=== PATIENT | male | born 1970 | race Caucasian/White ===

== ENCOUNTER 2018-10-20 22:26 | Emergency (ER) | payer SELFPAY ==
--- NOTE | 2018-10-20 22:29 | NUR ---
Patient BIB [facility] for c/o back pain. Patient upon arrival refusing to be traiged or to be seen by [facility] stating "I just want to go to [place]." Patient left without being triaged or seen by [facility]
== END 2018-10-20 22:31 | disposition left against medical advice (07) ==
LOC: ER 22:28
DX: Z53.21 Procedure and treatment not carried out due to patient leaving prior to being seen by health care provider (principal)

== ENCOUNTER 2019-10-06 03:59 | Emergency (ER) | payer SELFPAY ==
[~2019-10-06] VITALS: Ht 188 cm; Wt 81.6 kg
[2019-10-06] MEDS ORDERED: ONDANSETRON 4 MG/2 ML VIAL IV ONE (04:15)
[2019-10-06] MEDS ORDERED: ASPIRIN 81 MG TAB.CHEW PO ONE (04:15)
[2019-10-06] MEDS ORDERED: NITROGLYCERIN OINT 1 GM PACKET TP ONE ×2 (04:15→04:24)
[2019-10-06] MEDS ORDERED: HYDROCODONE/APAP 10-325 MG TABLET PO ONE (04:15)
--- NOTE | 2019-10-06 04:16 | NUR ---
PATIENT WAS MSE BY DR TAO IN ROOM 03A.
[2019-10-06] MEDS ORDERED: ASPIRIN 81 MG TAB.CHEW ONE (04:24)
[2019-10-06] MEDS ORDERED: HYDROCODONE/APAP 10-325 MG TABLET ONE (04:25)
[2019-10-06] MEDS ORDERED: NITROGLYCERIN 0.4 MG/TAB BOTTLE SL ONE ×2 (04:25→04:30)
[2019-10-06] MEDS ORDERED: ONDANSETRON 4 MG/2 ML VIAL ONE (04:25)
--- NOTE | 2019-10-06 04:36 | NUR ---
NITRO 0.4 MG GIVEN SECOND DOSE BP 140/89.
--- NOTE | 2019-10-06 04:41 | NUR ---
NITRO 0.4 MG GIVEN SL 3RD DOSE BP 154/92. CP PAIN 3/10
[2019-10-06 04:42] LABS: BASOPHILS % (AUTO) 0.6 % (0.0-2.0); EOSINOPHILS # (AUTO) 0.1 K/uL (0.0-0.7); EOSINOPHILS % (AUTO) 0.8 % (0.0-7.0); HEMATOCRIT 35.2 % (36.7-47.1); HEMOGLOBIN 11.8 g/dL (12.5-16.3); LYMPHOCYTES # (AUTO) 1.4 K/uL (20.0-40.0); LYMPHOCYTES % (AUTO) 22.1 % (20.5-51.5); MEAN CORPUSCULAR HEMOGLOBIN 30.3 uug (23.8-33.4); MEAN CORPUSCULAR HGB CONC 34 g/dL (32.5-36.3); MEAN CORPUSCULAR VOLUME 90.4 fL (73.0-96.2); MONOCYTES # (AUTO) 0.4 K/uL (2.0-10.0); MONOCYTES % (AUTO) 6.1 % (0.0-11.0); NEUTROPHILS # (AUTO) 4.5 K/uL (1.8-8.9); NEUTROPHILS % (AUTO) 70.4 % (38.5-71.5); PLATELET COUNT (AUTO) 237 K/uL (152-348); WHITE BLOOD COUNT (AUTO) 6.4 K/uL (3.6-10.2)
[2019-10-06] MEDS ORDERED: LEVOFLOXACIN 750 MG/D5W 150 ML PIGGYBACK IV ONE (04:45)
[2019-10-06] MEDS ORDERED: LEVOFLOXACIN 750MG/D5W 150 ML IV ONE (04:47)
[2019-10-06 04:50] LABS: CREATININE 1.3 mg/dL (0.6-1.3); POTASSIUM 3.3 mmol/L (3.5-5.1)
[2019-10-06 05:03] LABS: BILIRUBIN,DIRECT 0.1 mg/dL (0.0-0.2); BILIRUBIN,TOTAL 0.4 mg/dL (0.2-1.0); TOTAL PROTEIN, SERUM 7.2 g/dL (6.4-8.2)
[2019-10-06 05:04] LABS: ETHANOL < 3 MG/DL (0-0)
--- NOTE | 2019-10-06 08:55 | NUR ---
trying to d/c the pt. pt refuses to leave the hospital, refusesd homeless resources. called security to come and escort the pt out. food and clothing provided, pt threw them on the floor.
[2019-10-06 08:58] VITALS: BP 131/98
--- NOTE | 2019-10-06 09:01 | NUR ---
pt walked out the ER, refused to recieve the written d/c instruction. pt walks in steady gait. no sign of distress, able to talk in a loud voice without difficulty or sob. no coughing.
--- NOTE | 2019-10-06 09:02 | NUR ---
Patient given written and verbal discharge instructions. Patient verbalizes understanding of instructions. Patient is ambulatory with steady gait. Refuses offer of halfway placement.
--- NOTE | 2019-10-06 09:04 | NUR ---
pt took his own bike and surgical mask was placed on pt.
== END 2019-10-06 09:10 | disposition home or self-care (01) ==
LOC: ER 04:02
DX: R07.9 Chest pain, unspecified (principal); R94.31 Abnormal electrocardiogram [ECG] [EKG]; Z59.0 Homelessness; I10 Essential (primary) hypertension; R60.9 Edema, unspecified; R60.0 Localized edema; R05 Cough
CPT/HCPCS: 36415; 71045; 80048; 80076; 80307; 83880; 84484 ×2; 85025; 87040 ×2; 93005; 96365; 99285; J1956; 70030-TC; A4663; G0480; J2405